=== PATIENT | female | born 1935 | race Two or more races ===

== ENCOUNTER 2019-01-16 16:23 | Inpatient (IN) | payer OTHER ==
[~2019-01-16] VITALS: Ht 157.5 cm; Wt 81.6 kg
[2019-01-30] MEDS ORDERED: NORVASC10 MG PO (10:51)
[2019-01-30] MEDS ORDERED: LEVOTHYROXINE25 MCG PO (10:51)
[2019-01-30] MEDS ORDERED: LOSARTAN POTASS50 MG PO (10:51)
[2019-01-30] MEDS ORDERED: DETROL LA4 MG PO (10:52)
[2019-01-30] MEDS ORDERED: CHLORDIAZEPOXIDE5 MG PO (10:54)
== END 2019-02-20 20:41 | disposition home or self-care (01) | DRG 329 ==
LOC: O/R 02-14 06:20 → SURG 02-14 06:20 → EDBD 02-14 09:15 → SURG 02-14 09:15
PROVIDERS: ADMIT Colon & Rectal Surgery
PROC: 0TQB4ZZ Repair Bladder, Percutaneous Endoscopic Approach (ICD-10-PCS; 2019-02-14)
PROC: 0DJD8ZZ Inspection of Lower Intestinal Tract, Via Natural or Artificial Opening Endoscopic (ICD-10-PCS; 2019-02-14)
PROC: 4A12X4Z Monitoring of Cardiac Electrical Activity, External Approach (ICD-10-PCS; 2019-02-14)
PROC: 4A033R1 Measurement of Arterial Saturation, Peripheral, Percutaneous Approach (ICD-10-PCS; 2019-02-14)
PROC: 0DTN4ZZ Resection of Sigmoid Colon, Percutaneous Endoscopic Approach (ICD-10-PCS; principal; 2019-02-14 07:00)
PROC: BB24ZZZ Computerized Tomography (CT Scan) of Bilateral Lungs (ICD-10-PCS; 2019-02-16)
DX: K57.20 Diverticulitis of large intestine with perforation and abscess without bleeding (principal); J95.822 Acute and chronic postprocedural respiratory failure; K92.1 Melena; N99.72 Accidental puncture and laceration of a genitourinary system organ or structure during other procedure; J95.89 Other postprocedural complications and disorders of respiratory system, not elsewhere classified; J98.11 Atelectasis; J90 Pleural effusion, not elsewhere classified; N73.6 Female pelvic peritoneal adhesions (postinfective); E03.8 Other specified hypothyroidism; I11.9 Hypertensive heart disease without heart failure; I13.10 Hypertensive heart and chronic kidney disease without heart failure, with stage 1 through stage 4 chronic kidney disease, or unspecified chronic kidney disease; N18.2 Chronic kidney disease, stage 2 (mild); E11.22 Type 2 diabetes mellitus with diabetic chronic kidney disease; G47.33 Obstructive sleep apnea (adult) (pediatric); Z99.81 Dependence on supplemental oxygen; Z79.4 Long term (current) use of insulin